=== PATIENT | male | born 1950 | race Caucasian/White ===

== ENCOUNTER 2021-08-22 19:01 | Emergency (ER) | payer OTHER ==
[~2021-08-22] VITALS: Ht 167.6 cm; Wt 102.7 kg
[2021-08-22 19:25] VITALS: TEMP 99.1
[2021-08-22 20:00] LABS: BASO # 0.1 K/mm3 (0.0-0.2); BASO % 0.5 % (0.0-2.0); EOS # 0.2 K/mm3 (0.0-0.7); EOS % 2.2 % (0.0-4.0); GRAN # 7.5 K/mm3 (1.4-6.5); GRAN % 78.8 % (42.2-75.2); LYMPH # 0.7 K/mm3 (1.2-3.4); LYMPH % 6.9 % (20.0-51.0); MEAN CELL VOLUME 89 fl (80.0-100.0); MEAN CORPUSCULAR HEMOGLOBIN 28 pg (27-31); MEAN CORPUSCULAR HGB CONC 32 g/dl (33.0-37.0); MEAN PLATELET VOLUME 9.5 fl (7.4-10.4); MONO # 0.9 K/mm3 (0.1-0.6); MONO % 9.1 % (1.7-9.3); PLATELET COUNT 189 K/mm3 (130-400); RED BLOOD COUNT 3.92 M/mm3 (4.20-5.60); REDCELL DISTRIBUTION WIDTH-CV 12.9 % (11.5-14.5)
[2021-08-22 20:01] LABS: HEMATOCRIT 34.7 % (42.0-52.0)
[2021-08-22 20:21] LABS: ALBUMIN 2.8 gm/dL (3.4-4.8); BILIRUBIN,TOTAL 0.4 mg/dL (0.2-1.2); CALCIUM 9.1 mg/dL (8.4-10.2); CREATININE, serum 1.17 mg/dL (0.72-1.25); POTASSIUM 4.2 mmol/L (3.5-4.5); TOTAL PROTEIN 7.2 gm/dL (6.2-8.1)
[2021-08-22] MEDS ORDERED: LEVAQUIN 5500 MG/TA1 PO ×2 (21:43→21:51)
[2021-08-22 22:03] VITALS: BP 132/86; PULSE 87
== END 2021-08-22 22:03 | disposition home or self-care (01) ==
LOC: COL.ER 19:01
PROVIDERS: Personal Emergency Response Attendant
DX: K68.11 Postprocedural retroperitoneal abscess (principal); Z28.310 Unvaccinated for COVID-19
CPT/HCPCS: J0696; J7030; Q9967